=== PATIENT | male | born 1980 | race Caucasian/White ===

== ENCOUNTER 2016-11-27 20:07 | Emergency (ER) | payer SELFPAY ==
[~2016-11-27] VITALS: Ht 177.8 cm; Wt 138.0 kg
[~2016-11-27 20:07] MED LIST: CLEO300C2 PO; KLON2TAB PO; SULF1TAB47 PO
[2016-11-27 20:09] VITALS: BP 133/75; PULSE 98; RESP 18; TEMP 97.7; O2SAT 96
[2016-11-27] MEDS ORDERED: CITA20TA4 PO (20:31)
[2016-11-27] MEDS ORDERED: XANA2TAB2 PO (20:31)
[2016-11-27] MEDS ORDERED: METH40TA PO (20:31)
--- NOTE | 2016-11-27 20:42 | PD ---
HPI Chief Complaint: Skin Problem Time Seen by Provider: 20:41 Travel History International Travel<30 days: No Contact w/Intl Traveler<30days: No Traveled to known affect area: No History of Present Illness HPI Patient doesn't complain of infection of his left medial thigh that began about a week ago. Patient reports it has got bigger over the past 4 days. Patient taking amoxicillin for this with no improvement of symptoms. Patient describes a burning like sensation without radiation at the site. Pain is worse to palpation. Patient denies any known drainage or fevers. PFSH Past Medical History Anxiety: Yes Depression: Yes Diminished Hearing: No Tetanus Vaccination: < 5 Years Influenza Vaccination: No Past Surgical History Surgical History: No Previous Surgery Social History Alcohol Use: No Tobacco Use: No Substance Use: No Allergies-Medications (Allergen,Severity, Reaction): Coded Allergies: No Known Allergies (Verified , 11/27/16) Reported Meds & Prescriptions Reported Meds & Active Scripts Active Bactrim DS (Sulfamethoxazole-Trimethoprim) 800-160 Mg Tab 1 Tab PO BID Reported Xanax (Alprazolam) 2 Mg Tab 2 Mg PO Q8H PRN Citalopram (Citalopram Hydrobromide) 20 Mg Tab 20 Mg PO DAILY Methadone (Methadone HCl) 40 Mg Tab 150 Mg PO DAILY Review of Systems Except as stated in HPI: all other systems reviewed are Neg Physical Exam Narrative GENERAL: Well-developed, overly nourished, in no acute distress, and non-ill appearing. SKIN: Warm and dry. Fluctuant abscess noted left medial thigh with minimal surrounding cellulitis. Tender to palpation. There is no crepitus. HEAD: Atraumatic. Normocephalic. EYES: Pupils equal and round. EOMI. No scleral icterus. No injection or drainage. ENT: No nasal bleeding or discharge. Mucous membranes pink and moist. NECK: Trachea midline. Supple. No nuclear rigidity. RESPIRATORY: No accessory muscle use. No respiratory distress. MUSCULOSKELETAL: No obvious deformities. No clubbing. No cyanosis. No edema. Full range of motion. NEUROLOGICAL: Awake and alert. No obvious cranial nerve deficits. Motor grossly within normal limits. Normal speech. PSYCHIATRIC: Appropriate mood and affect; insight and judgment normal. Data Data Last Documented VS Vital Signs Date Time Temp Pulse Resp B/P Pulse Ox O2 Delivery O2 Flow Rate FiO2 11/27/16 20:32 14 11/27/16 20:09 97.7 98 133/75 96 Orders Wound Culture And Gram Stain (11/27/16 20:39) Lidocai-Epi 1%-1:100,000 Inj (Xylocaine- (11/27/16 20:45) MDM Medical Decision Making Medical Screen Exam Complete: Yes Emergency Medical Condition: Yes Differential Diagnosis Abscess, cellulitis, folliculitis, other Narrative Course The patient has no evidence of significant cellulitis. There is no evidence of necrotizing fasciitis/ Forneys at this time. The patient will be discharged on antibiotics. The patient was given signs and symptoms warnings for worsening infection, such as spreading of redness, increasing pain, and/or swelling, associated heat, or fever or feels worse, and instructed to return immediately if these signs or symptoms worsen. The patient is to return in 2 days for recheck. Sooner if worsens or as needed. The patient agrees with plan. Patient in no obvious distress upon re-evaluation. Patient was asked if they wanted to speak to my attending, which the patient did not wish to do at this time. Any questions/concerns in reference to patient diagnosis/condition discussed and clarified prior to patient's discharge. Reinforced sheer importance of close follow up with patient's primary physician or primary care clinic. Instructed patient to return to ED immediately, if symptoms return/ worsen. Pt showed understanding of above instructions. Further instructions and recommendations were detailed in discharge paperwork. Pt ambulated without difficulty out of ED at discharge. Procedures Procedure Narrative INCISION AND DRAINAGE OF ABSCESS: Verbal consent was obtained. The area was prepped. A subcutaneous wheal of 1% Xylocaine with epi with a total number 3 mL was used to anesthetize the area. The area was properly anesthetized. A number 11 scalpel was used to make a 1-cm incision across the area of the abscess. The abscess was drained and irrigated with normal saline. Quarter inch iodoform packing was placed in the wound. Sterile dressing applied by nurse. Patient tolerated procedure well. Patient advised to return here in 2 days to have packing removed and wound rechecked. Patient verbalized understanding. Diagnosis Primary Impression: Abscess Patient Instructions: Abscess (GEN), Abscess Follow-up (ED), Abscess Incision and Drainage (DC), General Instructions Additional Instructions: Follow-up with your primary care physician or return here in 2 days for recheck. Take all medication as prescribed. Apply warm compresses to affected area 3-4 times daily to facilitate drainage. Return to the emergency department if symptoms get worse. Med/Other Pt SpecificInfo: Prescription(s) given Scripts Sulfamethoxazole-Trimethoprim (Bactrim DS)800-160 Mg Tab1 Tab PO BID #20 TAB Ref 0 Prov:Charles Stafford MD 11/27/16 Disposition: 01 DISCHARGE HOME Condition: Stable Todd Rosado Nov 27, 2016 20:42
[2016-11-27] MEDS ORDERED: LIDOCAINE 1%/EPINEPHrine 1:100,000 SOLN 20 ML VIAL INFIL ONE (20:45)
[2016-11-27] MEDS ORDERED: BACT800T5 PO (20:57)
== END 2016-11-27 21:30 | disposition home or self-care (01) ==
LOC: NEPB 20:07
DX: L02.416 Cutaneous abscess of left lower limb (principal); A49.9 Bacterial infection, unspecified
CPT/HCPCS: 10061; 87070; 87077; 87186; 87205

== ENCOUNTER 2016-12-01 19:32 | Emergency (ER) | payer SELFPAY ==
[~2016-12-01] VITALS: Ht 180.3 cm; Wt 137.0 kg
[~2016-12-01 19:32] MED LIST changes: +BACT800T5 PO; +CITA20TA4 PO; -CLEO300C2 PO; -KLON2TAB PO; +METH40TA PO; -SULF1TAB47 PO; +XANA2TAB2 PO
[2016-12-01 19:34] VITALS: BP 131/75; PULSE 80; RESP 16; TEMP 97.7; O2SAT 98
--- NOTE | 2016-12-01 20:47 | PD ---
HPI Chief Complaint: Medical Clearance Time Seen by Provider: 20:45 Travel History International Travel<30 days: No Contact w/Intl Traveler<30days: No Traveled to known affect area: No History of Present Illness HPI 36-year-old white male presents to emergency department for recheck of an abscess to his left thigh. He is seen here in the ER 2 nights ago and had an incision and drainage performed. He was discharged on Bactrim. He states that his symptoms have much improved but have not completely resolved. He has had no fever chills. No significant drainage. He states the area of redness and swelling has much improved. PFSH Past Medical History Narrative Medical Anxiety, depression, substance abuse Anxiety: Yes Depression: Yes Diminished Hearing: No Tetanus Vaccination: < 5 Years Past Surgical History Surgical History: No Previous Surgery Social History Alcohol Use: No Tobacco Use: No Substance Use: No Allergies-Medications (Allergen,Severity, Reaction): Coded Allergies: No Known Allergies (Verified , 12/01/16) Reported Meds & Prescriptions Reported Meds & Active Scripts Active Bactrim DS (Sulfamethoxazole-Trimethoprim) 800-160 Mg Tab 1 Tab PO BID Reported Xanax (Alprazolam) 2 Mg Tab 2 Mg PO Q8H PRN Citalopram (Citalopram Hydrobromide) 20 Mg Tab 20 Mg PO DAILY Methadone (Methadone HCl) 40 Mg Tab 150 Mg PO DAILY Review of Systems Except as stated in HPI: all other systems reviewed are Neg Physical Exam Narrative GENERAL: This is a well-nourished, well-developed patient, in no apparent distress. SKIN: Patient has a resolving abscess to the inner left thigh. There is still some induration but the erythema is significantly improved. There is no purulent drainage. The wick is removed. No fluctuance or pointing. HEAD: Atraumatic. Normocephalic. EYES: PERRL, EOMI, no discharge or injection. No scleral icterus. EARS: Clear NOSE: Nasal turbinates appear normal. THROAT: Mucosa pink and moist. Airway patent. NECK: Trachea midline. supple, moves head freely. LUNGS: Clear to auscultation. CV: Regular in rhythm. ABDOMEN: Soft nontender. EXT: No clubbing cyanosis or edema. Data Data Last Documented VS Vital Signs Date Time Temp Pulse Resp B/P Pulse Ox O2 Delivery O2 Flow Rate FiO2 12/01/16 19:34 97.7 80 16 131/75 98 Room Air MDM Medical Decision Making Medical Screen Exam Complete: Yes Emergency Medical Condition: Yes Medical Record Reviewed: Yes Differential Diagnosis MDM: High Differential diagnoses: Abscess, folliculitis, cellulitis, lymphangitis, abrasion, contact dermatitis Narrative Course Patient's wick is removed from the abscess. A dressing is applied. Patient appears to be healing well. This is abscess recheck Diagnosis Primary Impression: Abscess re-check Patient Instructions: General Instructions Additional Instructions: Rest. Elevation. keep clean and dry. Warm compresses. Daily wound care with soap, water and Neosporin. Three Advil every 6 hours. Complete your antibiotics. Follow-up with a primary care doctor in one week. Return to the ER for any problems. Med/Other Pt SpecificInfo: No Change to Meds, Wound Care Disposition: 01 DISCHARGE HOME Condition: Stable Martín Carpio Dec 01, 2016 20:47
== END 2016-12-01 20:53 | disposition home or self-care (01) ==
LOC: NEPB 19:32
DX: L02.416 Cutaneous abscess of left lower limb (principal)
CPT/HCPCS: 99281